=== PATIENT | female | born 1980 | race Caucasian/White ===

== ENCOUNTER 2019-10-31 10:00 | Emergency (ER) | payer BC, OTHER ==
[2019-10-31 10:38] VITALS: BP 125/68
--- NOTE | 2019-10-31 10:58 | UC ---
Back Pain HPI - HPI Summary HPI Summary: lower back pain x 1 day s/p fall on her tail bone yesterday pain is 8 out of 10 , worse with sitting, walking, standing better with rest, ice, ibuprofen no urinary sx, no radiation of the pain - History of Current Complaint Chief Complaint: UCBackPain Stated Complaint: TAILBONE/PELVIS INJURY Time Seen by Provider: 10/31/19 10:30 Hx Obtained From: Patient Hx Last Menstrual Period: 10/08/19 ?: No Onset/Duration: Sudden Onset, Lasting Days - 1, Still Present Timing: Constant Severity Initially: Severe Severity Currently: Severe Pain Intensity: 7 Back Pain: Is Discrete @ - tail bone Character: Aching Aggravating Factor(s): Movement, Lifting, Bending, Walking, Cough Alleviating Factor(s): Rest, Cold Associated Signs And Symptoms: Negative: Swelling, Redness, Weakness, Numbness, Tingling - Allergies/Home Medications Allergies/Adverse Reactions: Allergies Allergy/AdvReac Type Severity Reaction Status Date / Time codeine Allergy Severe severe Verified 10/31/19 10:27 weakness, fatiuge amoxicillin [From Augmentin] Allergy Unknown Hives Verified 10/31/19 10:27 clavulanic acid Allergy Unknown Hives Verified 10/31/19 10:27 [From Augmentin] environmental Allergy Sneezing Uncoded 10/31/19 10:27 Home Medications: Home Medications Acetaminophen TAB* [Tylenol TAB*] 650 mg PO Q4H PRN 10/31/19 [History Confirmed 10/31/19] Bisoprolol TAB* [Zebeta TAB*] 5 mg PO DAILY 10/31/19 [History Confirmed 10/31/19 ] hydrOXYzine HCL TAB* [Atarax 25 MG TAB*] 25 mg PO QID 10/31/19 [History Confirmed 10/31/19] PMH/Surg Hx/FS Hx/Imm Hx - Additional Past Medical History Additional PMH: anxiety, OCD, acid reflux mild gastroporesis [ End ] GI/ History: Gastroesophageal Reflux Psychological History: Anxiety - Surgical History Surgical History: Yes Surgery Procedure, Year, and Place: tonsils 1999. "cold knife" surgery 2003 - outer layer of cervix removed - Family History Known Family History: Positive: Non-Contributory - Social History Alcohol Use: Occasionally Substance Use Type: None Smoking Status (MU): Light Every Day Tobacco Smoker Type: Cigarettes Amount Used/How Often: 8 cigs a day Household Exposure Type: Cigarettes - Immunization History Most Recent Influenza Vaccination: 06/2014 Review of Systems All Other Systems Reviewed And Are Negative: Yes Constitutional: Positive: Negative Skin: Positive: Negative Is Patient Immunocompromised?: No Physical Exam Triage Information Reviewed: Yes Appearance: Well-Appearing, Well-Nourished, Pain Distress Vital Signs: Initial Vital Signs Temp 98.5 F 10/31/19 10:31 Pulse 67 10/31/19 10:31 Resp 18 10/31/19 10:31 BP 125/68 10/31/19 10:31 Pulse Ox 100 10/31/19 10:31 Vital Signs Reviewed: Yes Eye Exam: Normal Eyes: Positive: Conjunctiva Clear ENT: Positive: Normal ENT inspection, Hearing grossly normal, Pharynx normal Neck: Positive: Supple, Nontender, No Lymphadenopathy Respiratory: Positive: Chest non-tender, Lungs clear, Normal breath sounds Cardiovascular: Positive: RRR, No Murmur, Pulses Normal Abdominal Exam: Normal Abdomen Description: Positive: Nontender, Soft. Negative: CVA Tenderness (R), CVA Tenderness (L), Distended, Guarding Bowel Sounds: Positive: Present Musculoskeletal: Positive: Strength Intact, ROM Intact, No Edema, Other: - lower back: no swelling, no bruising, tendernss mid lower back / tailbone Diagnostics - Radiology No standard instances Radiology Interpretation Completed By: Radiologist Summary of Radiographic Findings: xray report: IMPRESSION: #. Negative radiographic exam of the sacrum and coccyx. Back Pain Course/Dx - Differential Dx/Diagnosis Provider Diagnosis: Contusion of coccyx Discharge ED - Sign-Out/Discharge Documenting (check all that apply): Patient Departure All imaging exams completed and their final reports reviewed: Yes - Discharge Plan Condition: Stable Disposition: HOME Prescriptions: Naproxen [Naproxen 500 mg tab] 500 mg PO BID #20 tablet. Patient Education Materials: Contusion in Adults (ED) Referrals: Jama Cuellar MD [Primary Care Provider] - 7 Days Additional Instructions: normal xray of lower back / tailbone no fracture noted contusion of lower back: cont. with rest, ice, take Naproxen 2 x per day as needed for pain - Billing Disposition and Condition Condition: STABLE Disposition: Home
== END 2019-10-31 11:22 | disposition home or self-care (01) ==
LOC: UCCORT 10:00
DX: S30.0XXA Contusion of lower back and pelvis, initial encounter (principal); F17.210 Nicotine dependence, cigarettes, uncomplicated; Z91.09 Other allergy status, other than to drugs and biological substances; Z88.0 Allergy status to penicillin; Z88.5 Allergy status to narcotic agent; W19.XXXA Unspecified fall, initial encounter; Y92.9 Unspecified place or not applicable
CPT/HCPCS: 72220; 99212; G0463

== ENCOUNTER 2019-11-22 08:48 | Emergency (ER) | payer OTHER ==
[2019-11-22 09:10] VITALS: BP 125/67
[2019-11-22] MEDS ORDERED: Tetan/Diph/Pertus SYR(Tdap)* 0.5 ML SYR(BOOSTRIX) use SYR contains LATEX IM ONE (09:25)
--- NOTE | 2019-11-22 09:45 | UC ---
Bite Injury/Animal HPI - HPI Summary HPI Summary: dog bite left hand x 2 days ago pt was bitten by her own dog 2 days ago bite is on the left hand with 2 puncture wound the area is red swollen, painful with yellow discharge, no fever, no chills - History of Current Complaint Chief Complaint: UCBiteInjury Stated Complaint: DOG BITE LT HAND Time Seen by Provider: 11/22/19 09:10 Hx Obtained From: Patient Hx Last Menstrual Period: 11/09/2019 ?: No Severity Currently: Mild Severity Initially: Moderate Pain Intensity: 7 Pain Scale Used: 0-10 Numeric Onset/Duration: Sudden Onset, Lasting Days - 2, Still Present Type of Bite: Pet - dog Has Animal Been Immunized?: Yes Character: Puncture - left hand Aggravating Factor(s): Nothing Alleviating Factor(s): Nothing Associated Signs And Symptoms: Positive: Erythema, Drainage, Swelling. Negative : Fever, Numbness/Tingling, Limited ROM Animal Control Notified: Yes - Allergies/Home Medications Allergies/Adverse Reactions: Allergies Allergy/AdvReac Type Severity Reaction Status Date / Time codeine Allergy Severe severe Verified 11/22/19 09:04 weakness, fatiuge clavulanic acid Allergy Unknown Hives Verified 11/22/19 09:04 [From Augmentin] environmental Allergy Sneezing Uncoded 11/22/19 09:04 Home Medications: Home Medications Cholecalciferol TAB* [Vitamin D TAB*] 1,000 unit PO DAILY 11/22/19 [History Confirmed 11/22/19] DOXYcycline CAP(*) [DOXYcycline 100MG CAP(*)] 100 mg PO BID PRN 11/22/19 [ History Confirmed 11/22/19] PMH/Surg Hx/FS Hx/Imm Hx - Additional Past Medical History Additional PMH: Anxiety, GERD, Mild Gastroparesis, OCD GI/ History: Gastroesophageal Reflux Psychological History: Anxiety, Depression - Surgical History Surgical History: Yes Surgery Procedure, Year, and Place: tonsils 1999. "cold knife" surgery 2003 - outer layer of cervix removed - Family History Known Family History: Positive: Non-Contributory - Social History Alcohol Use: Rare Substance Use Type: None Smoking Status (MU): Light Every Day Tobacco Smoker Type: Cigarettes Amount Used/How Often: <1/2 PPD Length of Time of Smoking/Using Tobacco: Since Age 18 Household Exposure Type: Cigarettes - Immunization History Most Recent Influenza Vaccination: 06/2014 Most Recent Tetanus Shot: Unknown Review of Systems All Other Systems Reviewed And Are Negative: Yes Constitutional: Positive: Negative. Negative: Fever, Chills, Fatigue Eyes: Positive: Negative Is Patient Immunocompromised?: No Physical Exam Triage Information Reviewed: Yes Appearance: Well-Appearing, No Pain Distress, Well-Nourished Vital Signs: Initial Vital Signs Temp 98.7 F 11/22/19 09:03 Pulse 82 11/22/19 09:03 Resp 16 11/22/19 09:03 BP 125/67 11/22/19 09:03 Pulse Ox 100 11/22/19 09:03 Vital Signs Reviewed: Yes Eye Exam: Normal Eyes: Positive: Conjunctiva Clear ENT: Positive: Normal ENT inspection, Hearing grossly normal, Pharynx normal Neck: Positive: Supple, Nontender, No Lymphadenopathy Respiratory: Positive: Chest non-tender, Lungs clear, Normal breath sounds Cardiovascular: Positive: RRR, No Murmur, Pulses Normal Skin: Positive: Other - puncture wound left hand x 2 places from the dog bie, + erythema, swollen , tender to touch Bite Injury Course/Dx - Differential Dx/Diagnosis Provider Diagnosis: Cellulitis of left hand, Dog bite Discharge ED - Sign-Out/Discharge Documenting (check all that apply): Patient Departure All imaging exams completed and their final reports reviewed: No Studies - Discharge Plan Condition: Stable Disposition: HOME Prescriptions: Clindamycin Cap(NF) [Clindamycin Cap 300 mg Cap(NF)] 300 mg PO Q6H #40 cap Patient Education Materials: Animal Bite (ED), Cellulitis (ED) Referrals: Jama Cuellar MD [Primary Care Provider] - 3 Days - Billing Disposition and Condition Condition: STABLE Disposition: Home
--- NOTE | 2019-11-22 16:42 | UC ---
- Progress Note Progress Note: Pt called requesting diflucan for abx induced vaginal yeast infection pt on clinda for cellulitis, dog bite wound RX sent to pharmacy pt to take at end of prescription as needed Course/Dx - Diagnoses Provider Diagnoses: Cellulitis of left hand, Dog bite Discharge ED - Sign-Out/Discharge Documenting (check all that apply): Post-Discharge Follow Up All imaging exams completed and their final reports reviewed: No Studies - Discharge Plan Condition: Stable Disposition: HOME Prescriptions: Clindamycin Cap(NF) [Clindamycin Cap 300 mg Cap(NF)] 300 mg PO Q6H #40 cap Fluconazole [Diflucan 150 MG (NF)] 150 mg PO ONCE PRN #1 tab PRN Reason: vaginal yeast infection Patient Education Materials: Animal Bite (ED), Cellulitis (ED) Referrals: Jama Cuellar MD [Primary Care Provider] - 3 Days - Billing Disposition and Condition Condition: STABLE Disposition: Home
== END 2019-11-22 09:40 | disposition home or self-care (01) ==
LOC: UCCORT 08:48
DX: L03.114 Cellulitis of left upper limb (principal); S61.452A Open bite of left hand, initial encounter; F42.9 Obsessive-compulsive disorder, unspecified; F17.210 Nicotine dependence, cigarettes, uncomplicated; K31.84 Gastroparesis; Z88.5 Allergy status to narcotic agent; Z88.0 Allergy status to penicillin; Z91.09 Other allergy status, other than to drugs and biological substances; W54.0XXA Bitten by dog, initial encounter; Y92.9 Unspecified place or not applicable
CPT/HCPCS: 90471; 90715; 99213; G0463